=== PATIENT | female | born 1990 | race Caucasian/White ===

== ENCOUNTER 2018-11-04 04:24 | Emergency (ER) | payer BC ==
[~2018-11-04] VITALS: Ht 167.6 cm; Wt 73.0 kg
[2018-11-04] MEDS ORDERED: FLUORESCEIN SODIUM 1MG/STRIP BOTHEYE ONE (06:30)
[2018-11-04] MEDS ORDERED: TETRACAINE 0.5% OPHTH DROPS 4ML EACHEYE ONE (06:30)
[2018-11-04 11:00] VITALS: BP 118/82
== END 2018-11-04 11:17 | disposition home or self-care (01) ==
LOC: ER 04:24
DX: H10.213 Acute toxic conjunctivitis, bilateral (principal); F12.10 Cannabis abuse, uncomplicated; F14.10 Cocaine abuse, uncomplicated; F17.200 Nicotine dependence, unspecified, uncomplicated
CPT/HCPCS: 70486; 81025; 99284